=== PATIENT | female | born 1960 | race Caucasian/White ===

== ENCOUNTER 2017-09-08 21:35 | Emergency (ER) | payer OTHER ==
[~2017-09-08] VITALS: Ht 167.6 cm; Wt 79.4 kg
[~2017-09-08 21:35] MED LIST: ARTHROTEC 501 TABLET PO; CRESTOR20 MG PO; FLEXERIL10 MG PO; JENTADUETO 2.51 EAC2; LISINOPRIL10 MG PO; MOTRIN800 MG PO; NEXIUM40 MG PO; NOHOMEMEDS; NORCO 5/3251 TABLET PO; NORCO 7.5/321 TABLET PO; OMEPRAZOLE20 MG PO; PERCOCET 5-3251 EACH PO; PREDNISONE20 MG PO; SIMVASTATIN40 MG PO; VALIUM5 MG PO
[2017-09-08] MEDS ORDERED: NORCO 5/3251 TABLET PO (22:55)
[2017-09-08] MEDS ORDERED: NAPROXEN500 MG PO (22:55)
[2017-09-08 23:13] VITALS: BP 130/80
== END 2017-09-08 23:15 | disposition home or self-care (01) ==
LOC: EME 21:35
DX: I80.02 Phlebitis and thrombophlebitis of superficial vessels of left lower extremity (principal); F17.200 Nicotine dependence, unspecified, uncomplicated
CPT/HCPCS: 93971; 99281; 99283